=== PATIENT | male | born 1945 | race Caucasian/White ===

== ENCOUNTER 2024-08-08 17:57 | Observation (INO) | payer MEDICARE ==
[~2024-08-08] VITALS: Ht 180.3 cm; Wt 95.8 kg
[2024-08-08 18:56] LABS: BASOPHILS # (AUTO) 0.08 K/uL (0.00-0.20); BASOPHILS % (AUTO) 0.9 % (0.0-5.0); EOSINOPHILS % (AUTO) 2.2 % (0.0-8.0); HEMATOCRIT 45.4 % (42-54); IMMATURE GRANULOCYTE ABSOLUTE 0.05 K/uL (0-1); LYMPHOCYTES # (AUTO) 0.6 K/uL (1.0-4.8); LYMPHOCYTES % (AUTO) 6.6 % (21.0-51.0); MEAN CORPUSCULAR HEMOGLOBIN 32.5 pg (27.0-33.0); MEAN CORPUSCULAR VOLUME 92.8 fL (79-99); MONOCYTES # (AUTO) 0.6 K/uL (0.1-1.0); MONOCYTES % (AUTO) 6.1 % (3.0-13.0); NEUTROPHILS # (AUTO) 7.6 K/uL (1.8-7.7); NEUTROPHILS % (AUTO) 83.7 % (40.0-77.0); PLATELET COUNT (AUTO) 249 K/uL (130-400); RED BLOOD CELL COUNT(AUTO) 4.89 MIL/uL (4.50-6.20); RED CELL DISTRIBUTION WIDTH 12.6 % (11.0-15.5); WHITE BLOOD COUNT (AUTO) 9.1 K/uL (4.8-10.8)
[2024-08-08 19:01] LABS: APPEARANCE,URINE CLOUDY (CLEAR); BILIRUBIN,URINE NEGATIVE (NEGATIVE); COLOR,URINE BROWN (YELLOW); GLUCOSE, URINE (UA) NEGATIVE (NEGATIVE); KETONES,URINE NEGATIVE (NEGATIVE); LEUKOCYTE ESTERASE ,URINE 250 Leu/uL (NEGATIVE); NITRATE,URINE NEGATIVE (NEGATIVE); OCCULT BLOOD,URINE LARGE (NEGATIVE); PROTEIN,URINE 100 mg/dL (NEGATIVE); UROBILINOGEN,URINE 0.2 mg/dL (0.2-1.0)
[2024-08-08 19:04] LABS: ADD UA MICROSCOPIC YES
--- NOTE | 2024-08-08 19:05 | ERN ---
General Chief Complaint: Urinary Retention Stated Complaint: UTI,MULTIPLE COMPLAINTS Time Seen by MD: 17:59 History of Present Illness Initial Comments 79-year-old male who presents with a urinary retention. He reports a history of a is of your leg with respect it has been prostatectomy in the past. He reports that he has not urinated in about 6 hours and feels some pressure. No fevers. No other symptoms. He did report a bit of dysuria prior. He was worried that he may have urinary tract infection. He has had this before a few years ago which clear with the antibiotics. Allergies: Coded Allergies: No Known Drug Allergies (Unverified Allergy, Unknown, 08/08/24) Home Meds Active Scripts Levofloxacin (Levofloxacin) 500 Mg Tablet, 1 TAB PO DAILY for 7 Days, #7 TAB 0 Refills Prov:DAMIAN TORRES FLIGHT TOWER DISPATCHER 08/10/24 Past Medical History Past Medical History: Diabetes-Type II, High Cholesterol, Hypertension, Prostatitis Past Surgical History: Other Surgical History Other: PROSTATE REMOVED Results Laboratory and Microbiology Lab and Micro Result Laboratory Tests Test 08/08/24 18:45 08/08/24 18:49 Urine Color BROWN (YELLOW) Urine Appearance CLOUDY (CLEAR) H Urine pH 8.0 (5.0-8.0) Urine Specific [place] 1.013 (1.001-1.031) Urine Protein 100 mg/dL (NEGATIVE) H Urine Glucose (UA) NEGATIVE mg/dL (NEGATIVE) Urine Ketones NEGATIVE mg/dL (NEGATIVE) Urine Occult Blood LARGE (NEGATIVE) H Urine Nitrate NEGATIVE (NEGATIVE) Urine Bilirubin NEGATIVE mg/dL (NEGATIVE) Urine Urobilinogen 0.2 mg/dL (0.2-1.0) Urine Leukocyte Esterase 250 Raudel/uL (NEGATIVE) H Urine RBC 51-100 /HPF (0-1) H Urine WBC TNTC /HPF (0-1) H Urine Other Crystals (Auto) 2 /HPF (None Seen) Urine Bacteria FEW /HPF (None Seen) Urine Other Casts 1 /LPF (None Seen) White Blood Count 9.1 K/uL (4.8-10.8) Red Blood Count 4.89 MIL/uL (4.50-6.20) Hemoglobin 15.9 g/dL (14.0-18.0) Hematocrit 45.4 % (42-54) Mean Corpuscular Volume 92.8 fL (79-99) Mean Corpuscular Hemoglobin 32.5 pg (27.0-33.0) Mean Corpuscular Hemoglobin Concent 35.0 g/dL (32.0-36.0) Red Cell Distribution Width 12.6 % (11.0-15.5) Platelet Count 249 K/uL (130-400) Mean Platelet Volume 10.9 fL (7.5-10.5) H Immature Granulocyte % (Auto) 0.5 % (0-1) Neutrophils (%) (Auto) 83.7 % (40.0-77.0) H Lymphocytes (%) (Auto) 6.6 % (21.0-51.0) L Monocytes (%) (Auto) 6.1 % (3.0-13.0) Eosinophils (%) (Auto) 2.2 % (0.0-8.0) Basophils (%) (Auto) 0.9 % (0.0-5.0) Neutrophils # (Auto) 7.6 K/uL (1.8-7.7) Lymphocytes # (Auto) 0.6 K/uL (1.0-4.8) L Monocytes # (Auto) 0.6 K/uL (0.1-1.0) Eosinophils # (Auto) 0.20 K/uL (0.00-0.70) Basophils # (Auto) 0.08 K/uL (0.00-0.20) Absolute Immature Granulocyte (auto 0.05 K/uL (0-1) Nucleated Red Blood Cells 0.0 % (0.0-0.19) White Cell Morphology Comment See comments Sodium Level 138 mmol/L (136-145) Potassium Level 3.9 mmol/L (3.5-5.1) Chloride Level 102 mmol/L (101-111) Carbon Dioxide Level 28 mmol/L (21-32) Blood Urea Nitrogen 20 mg/dL (7-18) H Creatinine 1.1 mg/dL (0.5-1.3) Glomerular Filtration Rate Calc 68 mL/min (>90) Random Glucose 213 mg/dL (70-105) H Total Calcium 8.4 mg/dL (8.5-10.1) L MDM MDM: Differential diagnosis: Rationale: Tests considered and ordered secondary to shared decision making include: Previous outside records reviewed: Old ER visits. Risk of complication and/or morbidity or mortality of patient management: None Medications-Per medication reconciliation Need for hospitalization: Patient does meet criteria for hospitalization. Need for emergency major/minor surgery: No There are no social concerns with this patient. Prescription drug management Prescriptions will include symptomatic care Patient's prior external medical records from other ER visits were reviewed by me as indicated. Prior testing and results from previous visits were reviewed. Prior tests were taken into account with medical decision making and resource utilization, independent historian/historians were used to obtain complete medical history. I independently interpreted the test that were performed, results were reviewed by me and considered findings on radiology if ordered. Medical management and examination interpretation discussions were had by me with other qualified healthcare professionals as indicated for the patient's care. ED Course Orders Procedure Category Date Status Time Cbc With Differential LAB 08/08/24 Complete 18:07 Basic Metabolic Panel LAB 08/08/24 Complete 18:07 Urinalysis Profile LAB 08/08/24 Complete 18:07 Bladder Scan CPOE 08/08/24 Transmitted 18:07 Nurse Driven [place] JOVAN 08/08/24 Complete Removal Pro 18:29 Culture Urine BRYCE 08/08/24 Complete 19:04 Ceftriaxone 1g Vial PHA 08/08/24 Complete (Rocephine 1g Inj) 21:00 Vital Signs Date Time Temp Pulse Resp B/P (MAP) Pulse Ox O2 Delivery O2 Flow Rate FiO2 08/08/24 20:03 98.4 78 18 137/77 96 Room Air* 0 21 08/08/24 18:55 99.1 93 16 217/114 96 Room Air* 0 21 08/08/24 18:01 99.1 93 16 217/114 96 Room Air 0 DX & DISP Disposition: Inpatient Departure Impression: Primary Impression: Hematuria Additional Impression: Urinary retention Condition: Stable Scripts Levofloxacin (Levofloxacin) 500 Mg Tablet 1 TAB PO DAILY for 7 Days, #7 TAB 0 Refills Prov: DAMIAN TORRES NP 08/10/24 MALA SHAFER DO Aug 08, 2024 19:05 CELIA ALEJANDRA MD Aug 08, 2024 22:16
[2024-08-08 19:09] LABS: CREATININE 1.1 mg/dL (0.5-1.3); POTASSIUM 3.9 mmol/L (3.5-5.1)
[2024-08-08 19:10] LABS: BACTERIA,URINE FEW /HPF (None Seen); MUCUS,URINE RARE LPF (None Seen); OTHER CASTS, URINE 1 /LPF (None Seen); RBC,URINE 51-100 /HPF (0-1); UNCLASSIFIED CRYSTAL 2 /HPF (None Seen); WBC,URINE TNTC /HPF (0-1)
[2024-08-08] MEDS: cefTRIAXone 1G VIAL IVPB ONE (21:04)
--- NOTE | 2024-08-08 22:07 | NUR ---
PATIENT DID NOT BRING HOME MEDICATIONS
--- NOTE | 2024-08-08 22:18 | HP ---
[facility] HISTORY AND PHYSICAL Date of Service: Aug 08, 2024 Time of Service: 22:18 PCP: Self-referral HISTORY OF PRESENT ILLNESS: This is a 79-year-old male a [facility] [place] past medical history of hypertension, diabetes prostate cancer( with prostatectomy 13 years ago ) who presents to the ED for complaints of unable to urinate.Patient states he started having burning sensation during urination since last week and today his last void was around 12 noon and it has been 6 hrs had passed since his last void ,he was trying to void but he is not able to and he feels some pressure around his bladder so he decided to come to the ED for evaluation. Upon ER arrival a bladder scan was done and bledsoe catheter was inserted with hematuria noted . Seen and examined patient in the ED awake ,alert and coherent.Patient appears comfortable.Patient denies fever,chills,nausea ,vomiting abdominal pain chest pain and shortness of breath. Latest vital signs temperature 98.4, heart rate 78, blood pressure 137/77 saturation 96% on room air. Labs: CBC unremarkable. BUN 20, glucose 213, total calcium 8.4. Urinalysis consistent with Urinary tract infection. While in the ER patient received Rocephin 1 g IV. We will admit patient for further medical management. REVIEW OF SYSTEMS CONSTITUTIONAL: Denies fevers, chills, or night sweats. No unintentional weight loss reported. NEUROLOGICAL: Denies headache, amaurosis fugax, motor weakness, sensory de ficit, vertigo/spinning sensation, gait abnormalities, or tremors. ENT: No hearing loss, otalgia, otorrhea, rhinitis, rhinorrhea, hoarseness, or sore throat. CARDIOVASCULAR: Denies any exertional angina, dyspnea on exertion, orthopnea, paroxysmal nocturnal dyspnea, palpitations, life-threatening arrhythmias, claudication. PULMONARY: Denies any shortness of breath, cough, phlegm/sputum, hemoptysis, pleuritic chest pain. SLEEP: Denies morning headaches, daytime somnolence or napping. Denies difficulty falling asleep, staying asleep, waking from sleep. Denies knowledge of snoring. GASTROINTESTINAL: Denies any type of dysphagia to either liquids or solids. Denies nausea, vomiting, pyrosis, early satiety, abdominal pain, diarrhea, constipation, or changes in stool consistency or caliber. Denies coffee-ground emesis, hematemesis, hematochezia, or melanotic stools. GENITOURINARY: Positive for burning sensation on urination, hematuria and difficulty urination Denies Low urinary stream, straining to void, urinary intermittency or hesitancy, splitting of the voiding stream, terminal dribbling. ENDOCRINOLOGIC: Denies polyuria, polydipsia, polyphagia or heat/cold intol erances. HEMATOLOGIC: Denies thrombophilia/previous clots, or coagulopathy/bleeding disorders. ONCOLOGIC: Denies personal history of malignancy. DERMATOLOGIC: Denies rashes or pruritus. PSYCHIATRIC: Denies any suicidal or homicidal ideation. Denies hallucinations. PAST MEDICAL HISTORY: [ Prostate cancer, diabetes and hypertension ] PAST SURGICAL HISTORY: [ Prostate surgery 13 years ago ] PAST SOCIAL HISTORY: [ Patient is a winter [place] from [place]. Patient denies alcohol tobacco and recreational drug use. ] FAMILY HISTORY: [ Noncontributory ] Coded Allergies: No Known Drug Allergies (Unverified Allergy, Unknown, 08/08/24) PHYSICAL EXAM GENERAL APPEARANCE: The patient is awake, alert, and oriented, in no acute cardiopulmonary distress. NEUROLOGICAL: Cranial nerves II-XII grossly intact. Motor is 5/5 in bilateral upper and lower extremities proximal to distal. No sensory deficits. HEENT: Face is symmetric. Pupils are equal and reactive. Extraocular movements are intact. NECK: Supple. No JVD. No thyromegaly. No submental, submandibular, pre- /postauricular, occipital or supraclavicular lymphadenopathy. CHEST: Normal chest expansion. No Telemetry. LUNGS: Absence of any rales, rhonchi or any wheezing. CARDIOVASCULAR: Regular. S1 and S2 normal. No appreciable rubs, murmurs or gallops. ABDOMEN: Soft, nontender, and nondistended. There is no rebound, voluntary guarding, or rigidity. : Deferred. [place]. EXTREMITIES: Non-edematous and not cyanotic. No clubbing. Good capillary refill. SKIN: No skin breakdown. Vital Sign (Last 24 Hours) 08/08/24 20:03 Temp 98.4 Pulse 78 Resp 18 B/P (MAP) 137/77 Pulse Ox 96 O2 Delivery Room Air* O2 Flow Rate 0 FiO2 21 LABS: Laboratory: Test 08/08/24 18:49 08/08/24 18:45 Range/Units White Blood Count 9.1 4.8-10.8 K/uL Red Blood Count 4.89 4.50-6.20 MIL/uL Hemoglobin 15.9 14.0-18.0 g/dL Hematocrit 45.4 42-54 % Mean Corpuscular Volume 92.8 79-99 fL Mean Corpuscular Hemoglobin 32.5 27.0-33.0 pg Mean Corpuscular Hemoglobin Concent 35.0 32.0-36.0 g/dL Red Cell Distribution Width 12.6 11.0-15.5 % Platelet Count 249 130-400 K/uL Mean Platelet Volume 10.9 H 7.5-10.5 fL Immature Granulocyte % (Auto) 0.5 0-1 % Neutrophils (%) (Auto) 83.7 H 40.0-77.0 % Lymphocytes (%) (Auto) 6.6 L 21.0-51.0 % Monocytes (%) (Auto) 6.1 3.0-13.0 % Eosinophils (%) (Auto) 2.2 0.0-8.0 % Basophils (%) (Auto) 0.9 0.0-5.0 % Neutrophils # (Auto) 7.6 1.8-7.7 K/uL Lymphocytes # (Auto) 0.6 L 1.0-4.8 K/uL Monocytes # (Auto) 0.6 0.1-1.0 K/uL Eosinophils # (Auto) 0.20 0.00-0.70 K/uL Basophils # (Auto) 0.08 0.00-0.20 K/uL Absolute Immature Granulocyte (auto 0.05 0-1 K/uL Nucleated Red Blood Cells 0.0 0.0-0.19 % White Cell Morphology Comment See comments Sodium Level 138 136-145 mmol/L Potassium Level 3.9 3.5-5.1 mmol/L Chloride Level 102 101-111 mmol/L Carbon Dioxide Level 28 21-32 mmol/L Blood Urea Nitrogen 20 H 7-18 mg/dL Creatinine 1.1 0.5-1.3 mg/dL Glomerular Filtration Rate Calc 68 >90 mL/min Random Glucose 213 H 70-105 mg/dL Total Calcium 8.4 L 8.5-10.1 mg/dL Urine Color BROWN YELLOW Urine Appearance CLOUDY H CLEAR Urine pH 8.0 5.0-8.0 Urine Specific [place] 1.013 1.001-1.031 Urine Protein 100 H NEGATIVE mg/dL Urine Glucose (UA) NEGATIVE NEGATIVE mg/dL Urine Ketones NEGATIVE NEGATIVE mg/dL Urine Occult Blood LARGE H NEGATIVE Urine Nitrate NEGATIVE NEGATIVE Urine Bilirubin NEGATIVE NEGATIVE mg/dL Urine Urobilinogen 0.2 0.2-1.0 mg/dL Urine Leukocyte Esterase 250 H NEGATIVE Raudel/uL Urine RBC 51-100 H 0-1 /HPF Urine WBC TNTC H 0-1 /HPF Urine Other Crystals (Auto) 2 None Seen /HPF Urine Bacteria FEW None Seen /HPF Urine Other Casts 1 None Seen /LPF DIAGNOSTICS / RADIOLOGY: [ ] ASSESSMENT: Acute urinary retention POA Acute urinary tract infection with hematuria POA Hypertension POA Diabetes POA History of prostate cancer with prostate surgery 13 years ago POA PLAN: We will admit patient in medical surgical floor We will start on heart healthy diet We will start patient on Rocephin IV b.i.d. for empiric coverage We will start on Famotidine 20 mg p.o. bid for GI prophylaxis We will replace electrolytes as needed per protocol We will start on insulin sliding scale AC & HS with hypoglycemia protocol We will add prn medication for fever,pain,cough,nausea and vomiting We will reconcile home meds once medlist available We will seek urology consultation We will request labs in am Further orders to follow depending on above results Case discussed with attending physician and came up with above treatment and plan of care. ADVANCED CARE PLANNING 1. Which of the following were discussed? Hospice Care - No Therapeutic options - Yes Advance Directives - No Other discussions - 2. Discussed with who? Patient 3. Voluntary nature of this service was explained to the patient? Yes 4. Amount of time spent - ___20____ 5. Reviewed by Physician? (if this service was performed by NPP) Yes Patient seen and examined by me. Agree with note by CONTACT ACID PLANT OPERATOR SEE ADDITIONAL ORDERS PER CHART DISCUSSED WITH NURSING STAFF SHIREEN ALEGRIAP Aug 08, 2024 22:18
[2024-08-08] MEDS ORDERED: acetaMINOPHEN 325 MG TAB PO PRN ×2 (23:00)
[2024-08-08] MEDS ORDERED: ondanSETRON 4MG INJ IV PRN (23:00)
[2024-08-08] MEDS ORDERED: MAGNESIUM 2GM PREMIX 50ML 50 ML IV PRN (23:30)
[2024-08-08] MEDS ORDERED: PoTASSium chl 10% ELIXIR 20MEQ 20 MEQ/15 ML UDCUP PO PRN (23:30)
[2024-08-08] MEDS ORDERED: PoTASSium chloRIDE 20MEQ/100ML 100 ML IV PRN (23:30)
[2024-08-08] MEDS ORDERED: PoTASSium chloRIDE 20MEQ ER 20 MEQ ERTAB PO PRN (23:30)
[2024-08-08] MEDS ORDERED: GLUCAGON 1MG KIT 1 MG ML IM PRN (23:30)
[2024-08-08] MEDS ORDERED: DEXTROSE 50%-WATER 50 ML DISP.SYRIN IV PRN (23:30)
[2024-08-09] VITALS (10 sets, daily range): BP systolic 150–182; BP diastolic 77–96; PULSE 85–104; RESP 16–21; TEMP 98–98.8; O2SAT 95–99
[2024-08-09] MEDS ORDERED: PoTASSium chl 10% ELIXIR 20MEQ 20 MEQ/15 ML UDCUP PO PRN
[2024-08-09] MEDS ORDERED: PoTASSium chloRIDE 20MEQ/100ML 100 ML IV PRN
[2024-08-09] MEDS ORDERED: PoTASSium chloRIDE 20MEQ ER 20 MEQ ERTAB PO PRN
[2024-08-09] MEDS ORDERED: GLUCAGON 1MG KIT 1 MG ML IM PRN
[2024-08-09] MEDS ORDERED: DEXTROSE 50%-WATER 50 ML DISP.SYRIN IV PRN
[2024-08-09] MEDS ORDERED: MAGNESIUM 2GM PREMIX 50ML 50 ML IV PRN
[2024-08-09] MEDS: hydrALAZine 20MG/ML VIAL IV PRN (04:22)
[2024-08-09] MEDS: INSULIN humuLIN R 100 UNIT/ML 3ML SQ SCH (06:07)
[2024-08-09 06:46] LABS: BASOPHILS # (AUTO) 0.08 K/uL (0.00-0.20); BASOPHILS % (AUTO) 0.6 % (0.0-5.0); EOSINOPHILS % (AUTO) 2.3 % (0.0-8.0); HEMATOCRIT 47.4 % (42-54); IMMATURE GRANULOCYTE ABSOLUTE 0.06 K/uL (0-1); LYMPHOCYTES # (AUTO) 0.9 K/uL (1.0-4.8); LYMPHOCYTES % (AUTO) 6.7 % (21.0-51.0); MEAN CORPUSCULAR HEMOGLOBIN 32.3 pg (27.0-33.0); MEAN CORPUSCULAR HGB CONC 34.4 g/dL (32.0-36.0); MONOCYTES % (AUTO) 7.9 % (3.0-13.0); NEUTROPHILS # (AUTO) 10.5 K/uL (1.8-7.7); PLATELET COUNT (AUTO) 246 K/uL (130-400); RED BLOOD CELL COUNT(AUTO) 5.04 MIL/uL (4.50-6.20); RED CELL DISTRIBUTION WIDTH 12.7 % (11.0-15.5); WHITE BLOOD COUNT (AUTO) 12.8 K/uL (4.8-10.8)
[2024-08-09 07:19] LABS: ALBUMIN 3.5 g/dL (3.5-5.0); BILIRUBIN,TOTAL 0.8 mg/dL (0.2-1.0); CREATININE 0.8 mg/dL (0.5-1.3); MAGNESIUM 1.7 mg/dL (1.80-2.40); POTASSIUM 3.7 mmol/L (3.5-5.1); TOTAL PROTEIN, SERUM 6.5 g/dL (6.0-8.3)
[2024-08-09] MEDS ORDERED: INSULIN humuLIN R 100 UNIT/ML 3ML SQ SCH (07:30)
[2024-08-09] MEDS: cefTRIAXone 1G VIAL IVPB SCH (08:23)
[2024-08-09] MEDS: FAMOTIDINE 20MG TAB PO SCH (08:23)
--- NOTE | 2024-08-09 10:29 | PN ---
[facility] PROGRESS NOTE Date of Service: Aug 09, 2024 Time of Service: 10:19 SUBJECTIVE: [ ] Patient was admitted 08/08/2024 with chief complaints unable to urinate. Patient is having UTI symptoms ER workup was consistent with UTI with hematuria. Patient required [place] catheter on this admission patient has a history of kidney stone we will get a CT abdomen and pelvis. Patient denied chest pain or shortness for breath REVIEW OF SYSTEMS CONSTITUTIONAL: Denies fevers, chills, or night sweats. No unintentional weight loss reported. NEUROLOGICAL: Denies headache, amaurosis fugax, motor weakness, sensory deficit, vertigo/spinning sensation, gait abnormalities, or tremors. ENT: No hearing loss, otalgia, otorrhea, rhinitis, rhinorrhea, hoarseness, or sore throat. CARDIOVASCULAR: Denies any exertional angina, dyspnea on exertion, orthopnea, paroxysmal nocturnal dyspnea, palpitations, life-threatening arrhythmias, claudication. PULMONARY: Denies any shortness of breath, cough, phlegm/sputum, hemoptysis, pleuritic chest pain. SLEEP: Denies morning headaches, daytime somnolence or napping. Denies dif ficulty falling asleep, staying asleep, waking from sleep. Denies knowledge of snoring. GASTROINTESTINAL: Denies any type of dysphagia to either liquids or solids. Denies nausea, vomiting, pyrosis, early satiety, abdominal pain, diarrhea, constipation, or changes in stool consistency or caliber. Denies coffee-ground emesis, hematemesis, hematochezia, or melanotic stools. GENITOURINARY: Positive for burning sensation on urination, hematuria and difficulty urination Denies Low urinary stream, straining to void, urinary intermittency or hesitancy, splitting of the voiding stream, terminal dribbling. ENDOCRINOLOGIC: Denies polyuria, polydipsia, polyphagia or heat/cold intolerances. HEMATOLOGIC: Denies thrombophilia/previous clots, or coagulopathy/bleeding disorders. ONCOLOGIC: Denies personal history of malignancy. DERMATOLOGIC: Denies rashes or pruritus. PSYCHIATRIC: Denies any suicidal or homicidal ideation. Denies hallucinations. PHYSICAL EXAM GENERAL APPEARANCE: The patient is awake, alert, and oriented, in no acute cardiopulmonary distress. NEUROLOGICAL: Cranial nerves II-XII grossly intact. Motor is 5/5 in bilateral upper and lower extremities proximal to distal. No sensory deficits. HEENT: Face is symmetric. Pupils are equal and reactive. Extraocular movements are intact. NECK: Supple. No JVD. No thyromegaly. No submental, submandibular, pre-/postauricular, occipital or supraclavicular lymphadenopathy. CHEST: Normal chest expansion. No Telemetry. LUNGS: Absence of any rales, rhonchi or any wheezing. CARDIOVASCULAR: Regular. S1 and S2 normal. No appreciable rubs, murmurs or gallops. ABDOMEN: Soft, nontender, and nondistended. There is no rebound, voluntary guarding, or rigidity. : Deferred. [place]. EXTREMITIES: Non-edematous and not cyanotic. No clubbing. Good capillary refill. SKIN: No skin breakdown. Vital Signs (last 8hr) Date Time Temp Pulse Resp B/P (MAP) Pulse Ox O2 Delivery O2 Flow Rate FiO2 08/09/24 08:00 98.8 94 21 182/95 95 Room Air 08/09/24 05:00 88 150/84 08/09/24 04:00 98.8 85 16 166/96 96 Room Air LABS: Laboratory: Test 08/09/24 06:29 08/09/24 05:03 08/08/24 18:49 08/08/24 18:45 Range/Units White Blood Count 12.8 #H 4.8-10.8 K/uL Red Blood Count 5.04 4.50-6.20 MIL/uL Hemoglobin 16.3 14.0-18.0 g/dL Hematocrit 47.4 42-54 % Mean Corpuscular Volume 94.0 79-99 fL Mean Corpuscular Hemoglobin 32.3 27.0-33.0 pg Mean Corpuscular Hemoglobin Concent 34.4 32.0-36.0 g/dL Red Cell Distribution Width 12.7 11.0-15.5 % Platelet Count 246 130-400 K/uL Mean Platelet Volume 11.2 H 7.5-10.5 fL Immature Granulocyte % (Auto) 0.5 0-1 % Neutrophils (%) (Auto) 82.0 H 40.0-77.0 % Lymphocytes (%) (Auto) 6.7 L 21.0-51.0 % Monocytes (%) (Auto) 7.9 3.0-13.0 % Eosinophils (%) (Auto) 2.3 0.0-8.0 % Basophils (%) (Auto) 0.6 0.0-5.0 % Neutrophils # (Auto) 10.5 H 1.8-7.7 K/uL Lymphocytes # (Auto) 0.9 L 1.0-4.8 K/uL Monocytes # (Auto) 1.0 0.1-1.0 K/uL Eosinophils # (Auto) 0.30 0.00-0.70 K/uL Basophils # (Auto) 0.08 0.00-0.20 K/uL Absolute Immature Granulocyte (auto 0.06 0-1 K/uL Nucleated Red Blood Cells 0.0 0.0-0.19 % Sodium Level 141 136-145 mmol/L Potassium Level 3.7 3.5-5.1 mmol/L Chloride Level 105 101-111 mmol/L Carbon Dioxide Level 27 21-32 mmol/L Blood Urea Nitrogen 13 7-18 mg/dL Creatinine 0.8 0.5-1.3 mg/dL Glomerular Filtration Rate Calc 90 >90 mL/min Random Glucose 127 H 70-105 mg/dL Total Calcium 8.9 8.5-10.1 mg/dL Magnesium Level 1.70 L 1.80-2.40 mg/dL Total Bilirubin 0.8 0.2-1.0 mg/dL Aspartate Amino Transf (AST/SGOT) 14 10-37 U/L Alanine Aminotransferase (ALT/SGPT) 25 12-78 U/L Alkaline Phosphatase 92 50-136 U/L Total Protein 6.5 6.0-8.3 g/dL Albumin 3.5 3.5-5.0 g/dL Whole Blood Glucose 122 H 70-110 MG/DL White Cell Morphology Comment See comments Urine Color BROWN YELLOW Urine Appearance CLOUDY H CLEAR Urine pH 8.0 5.0-8.0 Urine Specific [place] 1.013 1.001-1.031 Urine Protein 100 H NEGATIVE mg/dL Urine Glucose (UA) NEGATIVE NEGATIVE mg/dL Urine Ketones NEGATIVE NEGATIVE mg/dL Urine Occult Blood LARGE H NEGATIVE Urine Nitrate NEGATIVE NEGATIVE Urine Bilirubin NEGATIVE NEGATIVE mg/dL Urine Urobilinogen 0.2 0.2-1.0 mg/dL Urine Leukocyte Esterase 250 H NEGATIVE Raudel/uL Urine RBC 51-100 H 0-1 /HPF Urine WBC TNTC H 0-1 /HPF Urine Other Crystals (Auto) 2 None Seen /HPF Urine Bacteria FEW None Seen /HPF Urine Other Casts 1 None Seen /LPF Current Medications Medications (Trade) Dose Ordered Sig/Ember Route PRN Reason Start Time Stop Time Status Last Admin Dose Admin Acetaminophen (TYLenol 325MG TAB) 650 mg Q4H PRN PO MILD PAIN (1-3) 08/08/24 23:00 09/07/24 22:59 Acetaminophen (TYLenol 325MG TAB) 650 mg Q6H PRN PO TEMPERATURE GREATER THAN 101.5 08/08/24 23:00 09/07/24 22:59 Ceftriaxone Sodium (ROCEphine 1G INJ) 1 gm BID IVPB 08/09/24 09:00 08/19/24 08:59 08/09/24 08:23 1 GM Dextrose (D50w) 50 ml AD PRN IV HYPOGLYCEMIA PROTOCOL 08/08/24 23:30 09/07/24 23:29 Dextrose (D50w) 50 ml AD PRN IV HYPOGLYCEMIA PROTOCOL 08/09/24 00:00 08/08/24 23:49 DC Famotidine (Pepcid 20mg Tab) 20 mg BID PO 08/09/24 09:00 09/08/24 08:59 08/09/24 08:23 20 MG Glucagon (Glucagon 1mg Kit) 1 mg AD PRN IM HYPOGLYCEMIA PROTOCOL 08/08/24 23:30 09/07/24 23:29 Glucagon (Glucagon 1mg Kit) 1 mg AD PRN IM HYPOGLYCEMIA PROTOCOL 08/09/24 00:00 08/08/24 23:49 DC Hydralazine HCl (APRESOLine 20MG INJ) 10 mg Q6H PRN IV For:SBP above 160;DBP above 90 08/08/24 23:00 09/07/24 22:59 08/09/24 08:23 10 MG Insulin Human Regular (humuLIN R 100 UNIT/ML 3ML) INSULIN SLIDING SCAL... ACHS SQ 08/09/24 07:30 08/08/24 23:49 DC Insulin Human Regular (humuLIN R 100 UNIT/ML 3ML) INSULIN SLIDING SCAL... ACHS SQ 08/09/24 07:30 09/08/24 07:29 Magnesium Sulfate 50 ml @ 0 mls/hr PROTOCOL PRN IV OTHER [SEE ORDER COMMENTS] 08/08/24 23:30 3/2/25 23:29 Magnesium Sulfate 50 ml @ 0 mls/hr PROTOCOL PRN IV OTHER [SEE ORDER COMMENTS] 08/09/24 00:00 08/08/24 23:49 DC Ondansetron HCl (zoFRAN 4MG INJ) 4 mg Q6H PRN IV NAUSEA/VOMITING 08/08/24 23:00 09/07/24 22:59 Potassium Chloride 100 ml @ 100 mls/hr AD PRN IV POTASSIUM PROTOCOL 08/08/24 23:30 09/07/24 23:29 Potassium Chloride 100 ml @ 100 mls/hr AD PRN IV POTASSIUM PROTOCOL 08/09/24 00:00 08/08/24 23:49 DC Potassium Chloride (K-Dur/Klor-Con 20meq) 20 meq AD PRN PO POTASSIUM PROTOCOL 08/08/24 23:30 09/07/24 23:29 Potassium Chloride (K-Dur/Klor-Con 20meq) 20 meq AD PRN PO POTASSIUM PROTOCOL 08/09/24 00:00 08/08/24 23:49 DC Potassium Chloride (KCl 10% Elixir 20meq/15ml) 20 meq AD PRN PO POTASSIUM PROTOCOL 08/08/24 23:30 09/07/24 23:29 Potassium Chloride (KCl 10% Elixir 20meq/15ml) 20 meq AD PRN PO POTASSIUM PROTOCOL 08/09/24 00:00 08/08/24 23:49 DC DIAGNOSTICS / RADIOLOGY: [ ] ASSESSMENT: Acute urinary retention requiring indwelling catheter POA Acute urinary tract infection with hematuria POA Leukocytosis Hypertension uncontrolled POA Diabetes POA History of prostate cancer with prostate surgery 13 years ago POA PLAN: Admit to medical-surgical Consulted Urology Antibiotics Rocephin 1 g every24 hours, we will monitor WBCs trend Tests urine cultures in process, CT abd/pelvis now replace electrolytes as needed per protocol addy to keep potassium above 4.0 magnesium 2.0 Continue insulin sliding scale AC & HS with hypoglycemia protocol We will add prn medication for fever,pain,cough,nausea and vomiting Home medications resumed: reviewed on Norvasc and lisinopril Further orders to follow depending on above results Case discussed with attending physician and came up with above treatment and plan of care. ATTESTATION BY PHYSICIAN I have seen and examined the patient. I reviewed the documentation, medical decision making, and treatment plan as noted by the mid-level provider above. I agree with the findings and plan of care. SHAW TAYLOR MD, ELIZABETH NP Aug 09, 2024 10:29
[2024-08-09] MEDS: amLODIPine 5 MG TAB PO ONE (10:30)
[2024-08-09] MEDS: tamSULOsin HCL 0.4 MG CAP.ER.24H PO ONE (10:30)
[2024-08-09] MEDS ORDERED: MAGNESIUM 2GM PREMIX 50ML 50 ML IV SCH (11:30)
--- NOTE | 2024-08-09 14:41 | NUR ---
INITIAL ASSESSMENT Patient is a here visiting from [place]. He lives with spouse, Vijaya Flores. Patient has no home services. DME: BPM. He is able to complete ADLs independently and drives. Patient has no local PCP. Pharmacy is [facility] in [place]. Patient has no issues with having stable chcf to live in or transportation. He and spouse have lived in their home for some time. No concerns voiced regarding not having enough food in the home. No safety concerns voiced regarding returning home. DCP is home. Addendum: 08/09/24 at 1444 by TRANG PAIZ Amended: Links added.
--- NOTE | 2024-08-09 17:22 | CONS ---
UROLOGY CONSULTATION NOTE Date of Service: Aug 09, 2024 Reason for Consultation: Acute Urinary retention Requesting Physician: Dr. Salinas HISTORY OF PRESENT ILLNESS: 79-year-old male a winter [facility] coming from [place] past medical history of hypertension, diabetes prostate cancer( with prostatectomy 13 years ago ) who presents to the ED for complaints of unable to urinate.Patient states he started having burning sensation during urination since last week and today his last void was around 12 noon and it has been 6 hrs had passed since his last void ,he was trying to void but he is not able to and he feels some pressure around his bladder so he decided to come to the ED for evaluation. Upon ER arrival a bladder scan was done and Hogue catheter was inserted with hematuria noted. CBC unremarkable. BUN 20, glucose 213, total calcium 8.4. Urinalysis showed inflammatory markers, final culture pending. Preliminary data from the culture shows growth of Gram-negative rods. As stated above he has a history of prostate cancer treated with a robotic prostatectomy more than a decade ago. But based on what he is communicating to us he had locally advanced disease that required wide local excision and included adjuvant radiotherapy. He has been dealing with persistent urinary incontinence using several pads a day. REVIEW OF SYSTEMS CONSTITUTIONAL: Denies fever, chills, or fatigue. HEAD/FACE: No signs of trauma. EENT: Denies eye pain, blurred vision, double vision, or light sensitivity. RESPIRATORY: Denies shortness of breath, cough, wheezing CARDIOVASCULAR: Denies chest pain, palpitation, syncope GASTROINTESTINAL/ABDOMINAL: Denies abdominal pain, constipation, diarrhea, nausea or vomiting GENITOURINARY: Reported dysuria but denied any hematuria. MUSCULOSKELETAL: Denies joint pain, tenderness, or trauma. INTEGUMENTARY: Denies rash or itchiness NEUROLOGICAL/PSYCH: Denies anxiety, depression, heat or cold intolerance. PAST MEDICAL HISTORY: [Prostate cancer ] Hypertension Diabetes mellitus PAST SURGICAL HISTORY: [Radical prostatectomy ] Adjuvant radiotherapy PAST SOCIAL HISTORY: [Negative x3 ] FAMILY HISTORY: [Noncontributory ] Coded Allergies: No Known Drug Allergies (Unverified Allergy, Unknown, 08/08/24) PHYSICAL EXAM EYES: Anicteric. Pupils equal and reactive. HENT: No oral thrush seen, moist Oral mucosa NECK: Supple, no JVD or thyromegaly. LUNGS: Good air entry. No rales, no rhonchi. CARDIOVASCULAR: S1, S2 regular. No murmur heard. ABDOMEN: Soft, non tender, bowel sounds present, no organomegaly CENTRAL NERVOUS SYSTEM: Awake, alert, oriented x 3. No focal deficits. SKIN: No rashes, no swelling. LYMPHATICS: No peripheral lymphadenopathy MUSCULOSKELETAL: No joint swelling, erythema or tenderness. EXTREMITIES: No cyanosis or clubbing BACK: No deformity, no pressure ulcer. GENITOURINARY: Hogue catheter is in place draining clear urine Vital Sign (Last 24 Hours) 08/09/24 08/09/24 08:00 12:00 Temp 98.1 Pulse 104 Resp 21 B/P (MAP) 159/90 Pulse Ox 95 O2 Delivery Room Air O2 Flow Rate 0 FiO2 21 Intake & Output (last 24hrs) 08/08/24 08/08/24 08/09/24 15:00 23:00 07:00 Output Total 1580 ml Balance -1580 ml LABS: Laboratory: Test 08/09/24 15:42 08/09/24 06:29 08/08/24 18:49 08/08/24 18:45 Range/Units Whole Blood Glucose 152 H 70-110 MG/DL White Blood Count 12.8 #H 4.8-10.8 K/uL Red Blood Count 5.04 4.50-6.20 MIL/uL Hemoglobin 16.3 14.0-18.0 g/dL Hematocrit 47.4 42-54 % Mean Corpuscular Volume 94.0 79-99 fL Mean Corpuscular Hemoglobin 32.3 27.0-33.0 pg Mean Corpuscular Hemoglobin Concent 34.4 32.0-36.0 g/dL Red Cell Distribution Width 12.7 11.0-15.5 % Platelet Count 246 130-400 K/uL Mean Platelet Volume 11.2 H 7.5-10.5 fL Immature Granulocyte % (Auto) 0.5 0-1 % Neutrophils (%) (Auto) 82.0 H 40.0-77.0 % Lymphocytes (%) (Auto) 6.7 L 21.0-51.0 % Monocytes (%) (Auto) 7.9 3.0-13.0 % Eosinophils (%) (Auto) 2.3 0.0-8.0 % Basophils (%) (Auto) 0.6 0.0-5.0 % Neutrophils # (Auto) 10.5 H 1.8-7.7 K/uL Lymphocytes # (Auto) 0.9 L 1.0-4.8 K/uL Monocytes # (Auto) 1.0 0.1-1.0 K/uL Eosinophils # (Auto) 0.30 0.00-0.70 K/uL Basophils # (Auto) 0.08 0.00-0.20 K/uL Absolute Immature Granulocyte (auto 0.06 0-1 K/uL Nucleated Red Blood Cells 0.0 0.0-0.19 % Sodium Level 141 136-145 mmol/L Potassium Level 3.7 3.5-5.1 mmol/L Chloride Level 105 101-111 mmol/L Carbon Dioxide Level 27 21-32 mmol/L Blood Urea Nitrogen 13 7-18 mg/dL Creatinine 0.8 0.5-1.3 mg/dL Glomerular Filtration Rate Calc 90 >90 mL/min Random Glucose 127 H 70-105 mg/dL Total Calcium 8.9 8.5-10.1 mg/dL Magnesium Level 1.70 L 1.80-2.40 mg/dL Total Bilirubin 0.8 0.2-1.0 mg/dL Aspartate Amino Transf (AST/SGOT) 14 10-37 U/L Alanine Aminotransferase (ALT/SGPT) 25 12-78 U/L Alkaline Phosphatase 92 50-136 U/L Total Protein 6.5 6.0-8.3 g/dL Albumin 3.5 3.5-5.0 g/dL White Cell Morphology Comment See comments Urine Color BROWN YELLOW Urine Appearance CLOUDY H CLEAR Urine pH 8.0 5.0-8.0 Urine Specific [place] 1.013 1.001-1.031 Urine Protein 100 H NEGATIVE mg/dL Urine Glucose (UA) NEGATIVE NEGATIVE mg/dL Urine Ketones NEGATIVE NEGATIVE mg/dL Urine Occult Blood LARGE H NEGATIVE Urine Nitrate NEGATIVE NEGATIVE Urine Bilirubin NEGATIVE NEGATIVE mg/dL Urine Urobilinogen 0.2 0.2-1.0 mg/dL Urine Leukocyte Esterase 250 H NEGATIVE Raudel/uL Urine RBC 51-100 H 0-1 /HPF Urine WBC TNTC H 0-1 /HPF Urine Other Crystals (Auto) 2 None Seen /HPF Urine Bacteria FEW None Seen /HPF Urine Other Casts 1 None Seen /LPF DIAGNOSTICS / RADIOLOGY: CT abdomen and pelvis without contrast obtained on admission was reviewed. We looked at the images. There is evidence of possible constipation as well as the stool pattern in the distal rectum was noted. Bladder is decompressed with a Hogue catheter in place ASSESSMENT: 79-year-old man presents with acute urinary retention, has a complex urological history with previous prostatectomy followed by adjuvant radiotherapy PLAN: 1. Patient already has a Hogue catheter in place, leave it to gravity drainage. 2. Treat the urinary tract infections after sensitivities are made available. 3. Patient can be discharged with a Hogue catheter in to see us in the office within 7-10 days for Hogue catheter removal. 4. This patient is going to need outpatient cystoscopy. We talked about that. He can have that done in his home in [place]. This is a suspicion of formation of scar tissue especially given his history of radiotherapy. 5. Thank you for involving us in the care of this patient. 60 minutes spent to complete a consult when a half of the time spent at bedside in counseling and coordination of care and address all questions and concerns posed by patient and present, some time was spent discussed with members of his care team. The rest of the time was spent reviewing medical records including laboratory data and imaging. STEFAN GARCIA MD Aug 09, 2024 17:22
[2024-08-10] VITALS: BP 154/88; PULSE 89; RESP 18; TEMP 98.3
[2024-08-10 04:00] VITALS: BP 144/86; PULSE 88; RESP 16; TEMP 98.3
[2024-08-10 05:28] LABS: BASOPHILS # (AUTO) 0.07 K/uL (0.00-0.20); BASOPHILS % (AUTO) 0.6 % (0.0-5.0); EOSINOPHILS # (AUTO) 0.34 K/uL (0.00-0.70); EOSINOPHILS % (AUTO) 3.1 % (0.0-8.0); HEMATOCRIT 46.4 % (42-54); IMMATURE GRANULOCYTE ABSOLUTE 0.05 K/uL (0-1); LYMPHOCYTES # (AUTO) 1.1 K/uL (1.0-4.8); LYMPHOCYTES % (AUTO) 9.7 % (21.0-51.0); MEAN CORPUSCULAR HEMOGLOBIN 32.1 pg (27.0-33.0); MEAN CORPUSCULAR HGB CONC 34.3 g/dL (32.0-36.0); MEAN CORPUSCULAR VOLUME 93.7 fL (79-99); MONOCYTES # (AUTO) 0.9 K/uL (0.1-1.0); MONOCYTES % (AUTO) 8.5 % (3.0-13.0); NEUTROPHILS # (AUTO) 8.4 K/uL (1.8-7.7); NEUTROPHILS % (AUTO) 77.6 % (40.0-77.0); PLATELET COUNT (AUTO) 249 K/uL (130-400); RED BLOOD CELL COUNT(AUTO) 4.95 MIL/uL (4.50-6.20); WHITE BLOOD COUNT (AUTO) 10.9 K/uL (4.8-10.8)
[2024-08-10 05:43] LABS: ALBUMIN 3.3 g/dL (3.5-5.0); BILIRUBIN,TOTAL 0.9 mg/dL (0.2-1.0); CREATININE 0.8 mg/dL (0.5-1.3); MAGNESIUM 1.9 mg/dL (1.80-2.40); TOTAL PROTEIN, SERUM 6.4 g/dL (6.0-8.3)
[2024-08-10 08:00] VITALS: BP 152/100; PULSE 72; RESP 19; TEMP 98.1
[2024-08-10 08:30] VITALS: O2SAT 96
--- NOTE | 2024-08-10 08:39 | HMCIMG ---
Exam Type: US RENAL SONOGRAM Clinical Information: urinary retention Comparison: None Findings: Examination shows normal renal size and echogenicity bilaterally. Preserved cortical thickness and corticomedullary junction region is seen. No hydronephrosis or calculi are seen. No renal masses are seen. There is no evidence of perinephric fluid on either side. No evidence of significant ureteral dilatation is seen. The right kidney measures 11 x 3.4 cm. The left kidney measures 10.7 x 4.1 cm. The urinary bladder is normal. No bladder masses, stones, or wall thickening is seen. IMPRESSION: Normal renal anatomy bilaterally.
[2024-08-10] MEDS ORDERED: tamSULOsin HCL 0.4 MG CAP.ER.24H PO SCH (09:00)
[2024-08-10] MEDS: amLODIPine 5 MG TAB PO SCH (09:16)
[2024-08-10] MEDS: LISINOPRIL 40 MG TABLET PO SCH (09:16)
[2024-08-10] MEDS ORDERED: LEVO-70 PO (09:56)
--- NOTE | 2024-08-10 09:58 | DS ---
Discharge Summary Hospital Course Summary: Patient was admitted 08/08/2024 with chief complaints unable to urinate. Patient is having UTI symptoms ER workup was consistent with UTI with hematuria. Patient required Hogue catheter on this admission patient has a history of kidney stone we will get a CT abdomen and pelvis. Patient denied chest pain or shortness for breath During the course of stay patient was seen by Urology. Patient we will continue with indwelling catheter upon discharge we will follow-up with urologist for removal within 7-10 days patient will a cystoscopy outpatient setting with his primary physician from [place]. Urine cultures Gram-negative we will be discharged on oral antibiotics. Patient is clinically stable for discharge Over The Road Driver(s): REASON: urinary retention ORDERING PHYSICIAN: DAMIAN TORRES NP PROCEDURE: RENAL - US RENAL SONOGRAM Exam Type: US RENAL SONOGRAM Clinical Information: urinary retention Comparison: None Findings: Examination shows normal renal size and echogenicity bilaterally. Preserved cortical thickness and corticomedullary junction region is seen. No hydronephrosis or calculi are seen. No renal masses are seen. There is no evidence of perinephric fluid on either side. No evidence of significant ureteral dilatation is seen. The right kidney measures 11 x 3.4 cm. The left kidney measures 10.7 x 4.1 cm. The urinary bladder is normal. No bladder masses, stones, or wall thickening is seen. IMPRESSION: Normal renal anatomy bilaterally. Procedure(s): RUN DATE: 08/10/24 [facility] PAGE 1 RUN TIME: [id number] [address] Department of Laboratories [facility] # [id number] Optical Fabrication Technician: Eli Connelly DO Specimen Report PATIENT: KATHERINE CACERES ACCT: [id number] LOC: [facility] U: [id number] AGE/SX: 79/M ROOM: 320 RE/31/[address]: SHAW TAYLOR MD : 1945 BED: 1 DIS: STATUS: ADM IN TLOC: SPEC: [id number] BERNARD: 08/08/24 STATUS: COMP REQ: [id number] RECD: 08/09/[address] [facility] [address]: MALA SHAFER DO SOURCE: URINE CATH ENTR: 08/09/24 [facility] DR: SPDES: CATHERIZED ORDERED: AERO ID & SENS Procedure Result Khadijah Date-Time AEROBIC ID & SENSITIVITIES Final 08/10/24 [facility] COLONY DESCRIPTION: DAY 1: COLONY COUNT: >100,000 CFU/ML GRAM NEGATIVE RODS IDENTIFICATION AND SENSITIVITY TO FOLLOW PROTEUS MIRABILIS PMIRABILIS M.I.C. RX --------- ---- AMPICILLIN <=8 S AZTREONAM <=4 S CEFAZOLIN <=2 S CEFTAZIDIME/AVIBACTAM <=8 S GENTAMICIN <=2 S LEVOFLOXACIN <=0.5 S MEROPENEM <=1 S PIPERACILLIN/TAZOBACTAM <=8 S TRIMETHOPRIM/SUFLAMETHOXAZOLE <=2/38 S @ [facility] Test Performed at: [facility] [address], [place], [place] Medical Medical Recruiter: Danny Benitez D.O. END OF REPORT Assessment/Plan: Discharged dx's; Acute urinary retention requiring indwelling catheter POA Acute urinary tract infection with hematuria POA gram negative: Proteus Mirabilis Leukocytosis improving Hypertension uncontrolled POA Diabetes POA History of prostate cancer with prostate surgery 13 years ago POA PLAN: ADMISSION DATE: 08/08/2024 DISCHARGE DATE: 10/08/2024 DISPOSITION: Home CONDITION: Stable DIRECTOR INFORMATICS(S): Urologists Dr Mann FOLLOW UP APPOINTMENT(S): Follow-up with urologists 7-10 days for removal of Hogue catheter PROCEDURES: None IMAGING (S) report attached to summary : Renal sonogram CT abdomen pelvis MICROBIOLOGY: report attached to summary; urine culture ACTIVITY: Ad serg HOME MEDICATIONS remain the same CHANGES ON HOME MEDICATIONS none NEW MEDICATIONS oral antibiotics as directed Levaquin 500 p.o. daily seven days TEACHING: Hogue care and side effects and adverse reaction of medication Emergency instructions: The patient was instructed to present to the nearest Emergency Department or call 911 should their symptoms return or worsen. New Medications: Levofloxacin (Levofloxacin) 500 Mg Tablet 1 TAB PO DAILY for 7 Days, #7 TAB 0 Refills Time spent arranging discharge: 31-60 minutes ATTESTATION BY PHYSICIAN I have seen and examined the patient. I reviewed the documentation, medical decision making, and treatment plan as noted by the mid-level provider above. I agree with the findings and plan of care. SHAW TAYLOR MD, ELIZABETH NP Aug 10, 2024 09:58
[2024-08-10 11:45] VITALS: BP 149/86; PULSE 95; RESP 19; TEMP 97.8
--- NOTE | 2024-08-10 12:26 | NUR ---
PATIENT BEING DC HOME WITH AT BEDSIDE, REMOVED PIV FROM PATIENT, TIP INTACT, PATIENT DENIES ANY PAIN OR DISCOMFORT AT THIS TIME. PATIENT IS LEAVING WITH GRUBBS IN PLACE, MAKAYLA CARE IS DONE, EDUCATED PATIENT ON GRUBBS AND MAKAYLA CARE, LEG BAG IS PLACED AND INSTRUCTED ON HOW TO USE BAG. PATIENT VERBALIZED TEACHING BACK TO ME. INFORMED PATIENT TO FOLLOW UP WITH UROLOGY IN 7-[address] PHILIPPE PHONE NUMBER TO OFFICE TO CALL AND FOLLOW UP WITH HIM OR HIS PREFERRED UROLOGIST. ALSO INFORMED PATIENT TO FOLLOW UP WITH PCP IN 2-3 DAYS. PATIENT BEING WHEELED DOWN BY CUSTOMS INSPECTOR TO PRIVATE VEHICLE PROVIDED BY .
--- NOTE | 2024-08-11 09:46 | HMCIMG ---
Exam Type: CT ABDOMEN/PELVIS W/O CONTRAST Clinical Information: ruled kidney stone Comparison: None CT Dose Index (CTDI): 10.20 mGy Dose Length Product (DLP): 530.00 total mGy-cm PROTOCOL: Routine noncontrast helical scanning of the abdomen and pelvis was performed at 5mm collimation. Findings: No evidence of nephro or ureterolithiasis is found. No hydronephrosis or ureteral dilatation is seen. The lung bases are clear. Large hiatal hernia is seen in the stomach is otherwise unremarkable. The spleen is unremarkable. It is not enlarged. The pancreas shows normal anatomy. It is not fatty replaced. It shows no lesions. The pancreatic duct is not dilated. The gallbladder is unremarkable. It shows no cholelithiasis. The gallbladder wall is normal in thickness. There is no pericholecystic fluid. The is no acute or chronic inflammation noted. The adrenal glands are unremarkable. There is no enlargement. No lesions are noted. The liver is unremarkable. It shows no focal masses. The appendix is unremarkable. It shows no evidence of inflammation. No appendicolith is seen. The small bowel is unremarkable. There is no evidence of dilatation to suggest obstruction. No evidence of adynamic ileus is seen. There is no small bowel wall thickening to suggest enteritis. There is diverticulosis. There is no evidence of acute inflammation to suggest diverticulitis. The colon is otherwise unremarkable. The urinary bladder is unremarkable. There is no wall thickening to suggest tumor or inflammation. There are no intraluminal calculi. There are no diverticula. There is no evidence of chronic bladder outlet obstruction. There is no evidence of urinary bladder distention to suggest urinary retention. The other pelvic structures are unremarkable. The bony and vascular structures are unremarkable for the patient's age. IMPRESSION: NO RENAL STONES. NO ACUTE PATHOLOGY OR INFLAMMATION SEEN. This study was performed using dose reduction techniques to include automated exposure control and/or adjustment of the mA and/or kV according to patient size.
== END 2024-08-10 12:40 | disposition home or self-care (01) ==
LOC: EDH 17:57 → INTOOBSV 22:55 → EDHIP 22:55 → 3CH 08-09 00:57
PROVIDERS: ADMIT Internal Medicine; ATTEND Internal Medicine
DX: N39.0 Urinary tract infection, site not specified (principal); D72.829 Elevated white blood cell count, unspecified; R33.9 Retention of urine, unspecified; R31.9 Hematuria, unspecified; I10 Essential (primary) hypertension; E11.9 Type 2 diabetes mellitus without complications; E78.00 Pure hypercholesterolemia, unspecified; Z87.442 Personal history of urinary calculi; Z79.899 Other long term (current) drug therapy; Z98.890 Other specified postprocedural states; Z85.46 Personal history of malignant neoplasm of prostate
CPT/HCPCS: 96376 ×2; 99285; 80048; 85025 ×3; 87086 ×2; 87186; 81001; 36415 ×3; 96365; 96366 ×2; 96375; 83735 ×2; 80053 ×2; 82948 ×6; 84153; 74176; 76770; J0696 ×4; J1815 ×3; J3475; J0360 ×2; G0378 ×5; 96374